=== PATIENT | male | born 1955 | race Caucasian/White ===

== ENCOUNTER 2017-07-21 11:08 | Day surgery (SDC) | payer OTHER ==
[2017-07-21] MEDS ORDERED: LIDOCAINE 2% (SDV) 5 ML INJ (11:49)
[2017-07-21] MEDS ORDERED: MIDAZOLAM 1 MG/ML 2 ML INJ ×2 (11:49→13:16)
[2017-07-21] MEDS ORDERED: PROPOFOL 20 ML (11:49)
[2017-07-21] MEDS ORDERED: FENTAnyl 50 MCG/ML VIAL ×2 (11:49→13:24)
[2017-07-21] MEDS ORDERED: IOHEXOL 300MG/ML 30 ML BTL (12:06)
[2017-07-21] MEDS: METHYLPREDNISOLONE ACET 80 MG/ML 1 ML (13:27)
[2017-07-21] MEDS: BUPIVACAINE 0.25% (STERILE-PAK) 30 ML INJ (13:27)
== END 2017-07-21 15:07 | disposition home or self-care (01) ==
LOC: SDS 11:08
DX: M16.12 Unilateral primary osteoarthritis, left hip (principal); E03.9 Hypothyroidism, unspecified
CPT/HCPCS: 27096; 73500